=== PATIENT | male | born 1955 | race Caucasian/White ===

== ENCOUNTER 2020-09-29 15:48 | Inpatient (IN) | payer MEDICARE, OTHER, SELFPAY ==
[2020-09-29] VITALS (14 sets, daily range): BP systolic 97–152; BP diastolic 63–101; PULSE 56–89; RESP 13–22; TEMP 36–37; O2SAT 94–100; BMI 27.1
--- NOTE | 2020-09-29 15:47 | ED.SYNCOPE ---
HPI - Syncope General Chief Complaint: Syncope Stated Complaint: SYNCOPE History of Present Illness HPI narrative: 65 yo male w/ no significant medical history presents to the ED following a syncopal episode. He was reportedly sitting down and had just started eating when he became nauseated and light headed. He then lost consciousness. He was lowered to the ground and regained consciousness quickly. He says that he still has some mild nausea at this time, otherwise he is feeling back to baseline. He recalls a few similar episodes about 20 years ago. No cause was found at that time. He does report getting GERD symptoms with activity recently. No SOB, CP, vomiting, diarrhea, fever. Related Data Home Medications Medication Instructions Recorded Confirmed No Home Medications 04/28/19 09/29/20 Allergies Allergy/AdvReac Type Severity Reaction Status Date / Time No Known Allergies Allergy Unknown Verified 09/29/20 15:56 Review of Systems Review of Systems: All systems reviewed & are unremarkable except as noted in HPI and below Constitutional: Constitutional: Denies chills, Denies fever(s) and Denies weakness Eyes: Eyes: Reports no additional eye complaints ENT: Reports system reviewed and no additional complaints, except as documented and Denies vertigo Cardiovascular: Cardiovascular: Denies chest pain Respiratory: Respiratory: Denies dyspnea Gastrointestinal: Gastrointestinal: Denies abdominal pain, Denies diarrhea, Reports nausea and Denies vomiting Genitourinary: Genitourinary: Reports no additional male genitourinary complaints Musculoskeletal: Musculoskeletal: Denies back pain Neurologic: Denies confusion, Reports dizziness, Reports syncope, Denies headache(s) and Denies weakness [facility] Past Medical History Medical History (Updated 09/30/20 @ 15:01 by Larissa Atwood MD) Gilbert disease Right inguinal hernia Tinnitus, bilateral Surgical History Surgical History Hx of cholecystectomy Family History Family History (Updated 09/30/20 @ 09:31 by Larissa Atwood MD) Mother Diabetes mellitus Father Over 80 years old in his 90's Social History Social History Social History: The patient is single and lives alone. He has never been and not have any children. He is a lifelong nonsmoker and rarely drinks alcohol. He denies any illicit substance use. He does not exercise much but is independent in his activities of daily living. 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 Smoking status: Never smoker Alcohol intake: never Substance use: never Spiritual care concerns: No Exam Const: General: healthy appearing, no acute distress and alert Orientation/consciousness: patient oriented x3 HENMT: Head: normal to inspection Mouth: Yes moist mucous membranes Eyes: Conjunctivae: conjunctivae normal Pupils: Equal, round and reactive pupils present EOM: EOMs intact bilaterally Neck: Neck: normal visual inspection Resp: Effort & Inspection: normal respiratory effort Auscultation: clear to auscultation bilaterally, no rales, no rhonchi and no wheezes Cardio: Jugular venous distension: no JVD Rate: regular rate Rhythm: regular rhythm Heart sounds: no murmurs GI: Inspection: non-distended GI Palp: Yes Soft to palpation and No Tenderness to palpation present (GI) Skin: General skin exam: normal color Neuro: General: patient oriented x3, moves all extremities, no focal motor deficits and CN's II-XI intact bilaterally Speech: normal speech Extrem: General: normal to inspection and no edema Psych: Appearance: well kempt Affect: normal affect Course Vital Signs Vital signs: Vital Signs Temperature 37.0 C 09/29/20 15:46 Pulse Rate 60 09/29/20 15:46 Respiratory Rate 20 09/29/20 15:46 Blood Pressure 11
--- NOTE | 2020-09-29 16:05 | ECG_ITS ---
Measurements Intervals [place] Rate: 68 P: 11 RI: 199 QRS: -5 QRSD: 86 T: -17 QT: 390 QTc: 416 Interpretive Statements SINUS RHYTHM VOLTAGE CRITERIA FOR LVH MINIMAL Q WAVES- HIGH LATERAL LEADS BORDERLINE T WAVE ABNORMALITY- INFERIOR LEADS BASELINE ARTIFACT- AVR, AVL, AVF BORDERLINE ECG Electronically Signed On 09-29-2020 17:49:16 CDT by Farhad Kolb D.O.
[2020-09-29 16:22] LABS: Basophils Percent Auto 0.7 % (0.2-1.2); Eosinophils Absolute Auto 0.1 K/mm3 (0-0.3); Hematocrit 46.2 % (42.0-52.0); Hemoglobin 15.6 g/dL (14.0-18.0); Immature Granulocyte Absolute 0.01 K/mm3 (0.00-0.031); Immature Granulocyte Percent A 0.2 % (0-0.5); Lymphocytes Absolute Auto 0.99 K/mm3 (0.9-3.2); Lymphocytes Percent Auto 16.1 % (18.3-44.2); Mean Corpuscular HGB Conc 33.8 g/dl (32-36); Mean Corpuscular Hemoglobin 31.6 pg (26-34); Mean Corpuscular Volume 93.5 fl (80-100); Monocytes Absolute Auto 0.6 K/mm3 (0.1-0.6); Monocytes Percent Auto 9.6 % (2.6-8.5); Neutrophils Absolute Auto 4.4 K/mm3 (1.3-6.7); Neutrophils Percent Auto 71.4 % (45.5-73.1); Platelet Count Result 242 k/mm3 (150-375); Red Blood Count 4.94 M/mm3 (4.6-6.20); Red Cell Distribution Width 12.7 % (11.5-14.5); White Blood Count 6.1 K/mm3 (4.5-10.0)
[2020-09-29] MEDS: SODIUM CHLORIDE 0.9% IV 1,000 ML 999 ML IV CONT (16:26)
[2020-09-29 16:32] LABS: Anion Gap 5 mmol/L (8-16); Blood Urea Nitrogen 23 mg/dL (9-20); Calcium 9.5 mg/dL (8.4-10.2); Carbon Dioxide 28 mmol/L (22-30); Chloride 104 mmol/L (98-107); Estimated CRCL calculation 53 ml/min; Estimated Glomerular Filt Rate > 60; Glucose 131 mg/dL (75-110); Sodium 137 mmol/L (137-145)
--- NOTE | 2020-09-29 16:39 | PC.NURSE ---
This nurse noted that patient's heart rate dropped down to 21 on the monitoring system. his friend came out of the room at that time and reported he was feeling dizzy. I walked into room to find patient sitting up with eyes shut, but responsive and sweating. I put patient in Trendelenburg position. Cat RN and Summer RN notified, Dr Fletcher notified. Strip printed.
[2020-09-29 17:06] LABS: Troponin I < 0.012 ng/mL (0.000-0.034)
--- NOTE | 2020-09-29 19:19 | ADMGEN ---
This patient, Main Paredes, was admitted to IMU Room 203-01 @ 1850. Patient oriented to hospital policies and general routines including ID bracelet, bed and alarms, visiting hours, pain management, procedures, bathroom and other care routines, personal items, smoking policy, room service/diet, and visiting hours. Information on how to activate the Rapid Response Team has been discussed. Patient are encouraged to report perceived risks to care and to ask questions if they do not understand what they are told or what they should do.
[2020-09-29 21:11] LABS: Troponin I < 0.012 ng/mL (0.000-0.034)
[2020-09-30] VITALS (19 sets, daily range): BP systolic 101–138; BP diastolic 64–88; PULSE 54–74; RESP 13–22; TEMP 36.1–36.8; O2SAT 94–99
--- NOTE | 2020-09-30 | ECHO_ITS ---
Patient Info Name: Main Paredes Age: 65 years : 1955 Gender: Male Ht: 66 in Wt: 168 lbs BSA: 1.90 m2 HR: 60 bpm BP: 126 / 73 mmHg Heart Rhythm: Sinus Rhythm Technical Quality: Good Exam Date: 09/30/2020 9:33 AM Exam Location: [facility] Pulmonary Patient Status: Inpatient Admit Date: 09/29/2020 Staff Ordering Physician: Monika Francis DO Sales Incentive Analyst: Aaron Skaggs RDCS, RT Attending Provider: Larissa Atwood MD Referring Physician: Penny UNDERWOOD; Exam Type: CA echo doppler color flow Study Info Indications R01.1 - Cardiac murmur, unspecified Complete two-dimensional, color flow and Doppler transthoracic echocardiogram is performed. Strain analysis performed. Summary 1. Complete two-dimensional, color flow and Doppler transthoracic echocardiogram is performed. 2. Normal left ventricular size with mild concentric hypertrophy. Overall good systolic function with an a estimated ejection fraction of 60-65%. However there appears to be basal inferior hypokinesis. Global longitudinal strain is normal at-19%. Grade 1 diastolic dysfunction is noted. 3. Left atrial chamber dimension is mildly enlarged. 4. Probably bicuspid aortic valve with severe calcification. There is severe/critical aortic valve stenosis with a peak velocity of 479 cm/s, mean gradient of 45 mmHg, and aortic valve area of 0.6 cm2. 5. There is mild mitral valve regurgitation. 6. There is mild tricuspid valve regurgitation. 7. Mild pulmonary hypertension, estimated pulmonary arterial systolic pressure is 37 mmHg. 8. The aortic root is mildly dilated at 3.6 cm. 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 The aortic arch also appears dilated. 9. The temporary pacemaker wires noted; appears to be directed toward the right ventricular free wall. 10. Normal sinus rhythm. Left Ventricle Left ventricular chamber dimension is normal. Left ventricular systolic function is normal, estimated at 60-65%. There is mildly increased left ventricular wall thickness. Left ventricular septal wall motion is normal. The left ventricular diastolic function is grade I diastolic dysfunction. E/e' 10.6 is normal. Right Ventricle Right ventricular chamber dimension is normal. Right ventricular systolic function is normal. Left Atria Left atrial chamber dimension is mildly enlarged. Right Atria Right atrial chamber dimension is normal. Aortic Valve The aortic valve is probably bicuspid. There is no aortic valve sclerosis. Probably bicuspid aortic valve with severe calcification. There is severe/critical aortic valve stenosis with a peak velocity of 479 cm/s, mean gradient of 45 mmHg, and aortic valve area of 0.6 cm2. There is no aortic valve regurgitation. There is severe aortic valve calcification. Pulmonic Valve The pulmonic valve is normal. There is no pulmonic valve stenosis. There is no pulmonic regurgitation. Mitral Valve The mitral valve has normal leaflets. There is no mitral valve stenosis. There is mild mitral valve regurgitation. Tricuspid Valve The tricuspid valve leaflets are normal. There is no significant tricuspid valve stenosis. There is mild tricuspid valve regurgitation. Mild pulmonary hypertension, estimated pulmonary arterial systolic pressure is 37 mmHg. Pericardium/Pleural The pericardium appears normal. There is no pericardial effusion. Inferior Vena Cava Normal inferior vena cava with >50% collapse upon inspiration consistent with Em
[2020-09-30 00:10] LABS: Troponin I < 0.012 ng/mL (0.000-0.034)
[2020-09-30 04:37] LABS: Glucose Point of Care 102 (65-105)
--- NOTE | 2020-09-30 05:03 | PC.NURSE ---
At approx. 0430, patient became bradycardic and then asystolic. Upon entering the room, patient was unresponsive but became responsive and had a rhythm with shaking. Patient was initially disoriented but then became oriented x 3. External pacing pads are on the patient and hooked up to the pacer. Dr. Atwood notified. Patient will transfer to the ICU for further observation.
--- NOTE | 2020-09-30 05:11 | PM.IMCN ---
Assessment and Plan Assessment and plan (1) Asystole by electrocardiogram: Code(s): I46.9 - Cardiac arrest, cause unspecified Status: Acute (2) Syncope: Qualifiers: Syncope type: unspecified Qualified Code(s): R55 - Syncope and collapse Code(s): R55 - Syncope and collapse Status: Acute Additional Plan Patient has had multiple episodes of asystole associated with heart block. Cardiology plans to proceed with temporary pacemaker placement this a.m.. Patient does have heart murmur. Echocardiogram has been ordered. 1 hours spent in critical care activities. Due to a high probability of clinically significant, life threatening deterioration, the patient required my highest level of preparedness to intervene emergently and I personally spent this critical care time directly and personally managing the patient. This critical care time included obtaining a history; examining the patient; pulse oximetry; ordering and review of studies; arranging urgent treatment with development of a management plan; evaluation of patient's response to treatment; frequent reassessment; and discussions with other providers. It was exclusive of separately billable procedures and treating other patients and teaching time. Please see Assessment and Plan section and the rest of the note for further information on patient assessment and treatment. HPI Data of Consult Consult date: 09/30/20 Requesting Physician: Larissa Atwood MD Primary Care Provider: Russ Bravo MD Consult Narrative Narrative: Main Paredes is a 65 year old male with a past medical history of Gilbert's disease and intermittent syncope after syncopal episode and was admitted overnight for observation in the intermediate unit to the cardiology service. Telemetry demonstrated the patient had a type 2 heart block. In the middle of the night the patient Floyd down and had an episode of asystole lasting approximately 30 seconds per nursing report. The patient had spontaneous resumption of sinus rhythm. Pacer pads were applied. The admissions director contacted and patient was transferred to the ICU. P.r.n. atropine was ordered. The hospitalists have been consulted as we were in house. I arrived to the ICU at 5:25 a.m.. I went immediately to the night monitor and note patient is in asystole. At that same time nursing staff noted that the patient was unresponsive. Has staff was getting ready to start CPR the patient became responsive and had sinus bradycardia with heart rate between 45 and 55. The patient had severe nausea for approximately 3-5 minutes after the episode of asystole. He was also mildly confused after both events. At the time of my evaluation he was alert oriented to person place month and current events. He was confused as to the year thought it was 2000. The duration the 2nd episode of asystole was 27 seconds. The patient did have pacer pads applied but they had not yet been turned on. Pacemaker was initiated. Patient initially required 100 volts for capture but voltage was turned down to 50 volts. The patient was having frequent shocks. Subsequently his rate was turned down to 50. He has tolerated pacemaker better since that time. An order has been given for p.r.n. fentanyl for pain. Cardiology was called and updated as to the patient's 2nd episode of asystole. Plan is now for the patient to go for temporary pacemaker this a.m.. On exam patient was noted have a systolic murmur. He denies history of heart disease or known murmur. He denies orthopnea, paroxysmal nocturnal dyspnea or lower extremity edema. Denies history of palpitations. He did have history of recurrent syncopal events that occurred approximately 3 years ago but no cause was identified for those events at that time. The patient reports that he was at dinner at his brother's house when he had his 1st syncopal event last night. He had a brief episode of dizziness before he w
--- NOTE | 2020-09-30 05:30 | PC.NURSE ---
Sancho Paredes (brother) notified of event and transfer to the ICU. All questions answered.
--- NOTE | 2020-09-30 05:35 | ECG_ITS ---
Measurements Intervals [place] Rate: 61 P: 6 NE: 219 QRS: -3 QRSD: 94 T: -13 QT: 433 QTc: 436 Interpretive Statements SINUS RHYTHM WITH FIRST DEGREE AV BLOCK LEFT VENTRICULAR HYPERTROPHY AND ST-T CHANGE BORDERLINE T WAVE ABNORMALITY- INFERIOR LEADS BASELINE ARTIFACT- I, III ABNORMAL ECG Electronically Signed On 09-30-2020 8:59:07 CDT by Farhad Kolb D.O.
--- NOTE | 2020-09-30 06:09 | ECG_ITS ---
Measurements Intervals [place] Rate: 56 P: 7 MN: 223 QRS: -11 QRSD: 94 T: -12 QT: 427 QTc: 413 Interpretive Statements SINUS BRADYCARDIA WITH FIRST DEGREE AV BLOCK LEFT VENTRICULAR HYPERTROPHY AND ST-T CHANGE ABNORMAL ECG Electronically Signed On 09-30-2020 9:04:48 CDT by Farhad Kolb D.O.
[2020-09-30] MEDS: fentaNYL CITRATE INJ (*CRX) 100 MCG/2 ML VIAL 25 MCG IV PUSH (06:18)
--- NOTE | 2020-09-30 06:30 | PC.NURSE ---
This patient, Main Paredes, was received from IMU 203 on 09/30/20 at 0517. Patient oriented to unit policies and routines
[2020-09-30 06:32] LABS: Basophils Percent Auto 0.2 % (0.2-1.2); Eosinophils Absolute Auto 0.2 K/mm3 (0-0.3); Eosinophils Percent Auto 2.9 % (0-4.4); Hematocrit 42.7 % (42.0-52.0); Hemoglobin 14.4 g/dL (14.0-18.0); Immature Granulocyte Absolute 0.02 K/mm3 (0.00-0.031); Immature Granulocyte Percent A 0.2 % (0-0.5); Lymphocytes Absolute Auto 1.14 K/mm3 (0.9-3.2); Lymphocytes Percent Auto 13.9 % (18.3-44.2); Mean Corpuscular HGB Conc 33.7 g/dl (32-36); Mean Corpuscular Hemoglobin 31.2 pg (26-34); Mean Corpuscular Volume 92.6 fl (80-100); Mean Platelet Volume 8.9 fl (7.4-10.4); Monocytes Absolute Auto 0.7 K/mm3 (0.1-0.6); Monocytes Percent Auto 8.9 % (2.6-8.5); Neutrophils Percent Auto 73.9 % (45.5-73.1); Platelet Count Result 222 k/mm3 (150-375); Red Blood Count 4.61 M/mm3 (4.6-6.20); Red Cell Distribution Width 12.7 % (11.5-14.5); White Blood Count 8.2 K/mm3 (4.5-10.0)
[2020-09-30 06:40] LABS: Prothrombin Time 13.6 Seconds (11.1-14.7)
[2020-09-30 06:43] LABS: Anion Gap 5 mmol/L (8-16); Blood Urea Nitrogen 17 mg/dL (9-20); Calcium 8.7 mg/dL (8.4-10.2); Carbon Dioxide 27 mmol/L (22-30); Chloride 108 mmol/L (98-107); Estimated CRCL calculation 53 ml/min; Estimated Glomerular Filt Rate > 60; Glucose 129 mg/dL (75-110); Potassium 4.1 mmol/L (3.4-5.0); Sodium 140 mmol/L (137-145)
--- NOTE | 2020-09-30 08:00 | PM.IMHP ---
H&P: HPI History of Present Illness Date/Time: 09/30/20 08:00 Chief Complaint: Syncope Narrative: Date of Service 09/30/2020 Mr. Main Paredes is a 65 y.o. WM admitted for syncope. He has been found have episodes of complete heart block and sinus node dyfunction resulting in ventricular asystole lasting for up to 30 seconds since admission. The patient recalls about a 2 years ago he had episodes of syncope but no etiology could be found and they resolved. Starting yesterday he has episodes of brief dizziness and nausea none while eating dinner with his brother he became nauseated, lightheaded and had an episode of syncope. He was brought to the emergency room where he transiently dropped his heart rate to 27 with both sinus pauses and a nonconducted P wave suggesting both sinus node dysfunction AV node dysfunction. He was admitted to IMU but shortly before 5 a.m. this morning he had episode of asystole lasting, per the nurses, about 30 seconds that resolved with stimulating the patient. He was nauseated and groggy for a while afterwards. He was transferred to the ICU and external pacer applied. He had another brief episode of complete heart block which progressed to a sinus pause lasting about 20 seconds, occuring before the external pacer was turned on. Now he is requiring intermittent episodes of external pacing. The patient has been previously quite healthy. He does report however that on exertion he will feel some substernal heartburn which radiates up to his neck resolved with rest. When he resumes activity takes longer for to come back. He has a history of borderline hypertension. He has never been told he had a heart murmur. No diabetes or hyperlipidemia. No family h/o heart disease, except mother might have had a pacemaker. Review of Systems Constitutional: Constitutional: Denies fatigue, Denies lethargy and Denies weakness Eyes: Eyes: Reports no additional eye complaints ENT: Denies epistaxis Cardiovascular: Cardiovascular: Reports chest pain, Denies diaphoresis, Denies pedal edema, Denies leg edema, Reports lightheadedness and Denies palpitations Respiratory: Respiratory: Denies cough, Denies dyspnea and Denies dyspnea on exertion Gastrointestinal: Gastrointestinal: Denies abdominal pain and Reports heartburn (with activity) Genitourinary: Genitourinary: Reports no additional male genitourinary complaints Musculoskeletal: Musculoskeletal: Reports no additional musculoskeletal complaints Integumentary/Breasts: Skin/Breast: Denies rash Neurologic: Reports system reviewed and no additional complaints, except as documented Psychiatric: Psychiatric: Reports no additional psychiatric complaints [facility] Past Medical History Medical History (Updated 09/30/20 @ 10:01 by Jair Velazquez MD) Gilbert disease Right inguinal hernia Tinnitus, bilateral Surgical History Surgical History Hx of cholecystectomy Family History Family History (Updated 09/30/20 @ 09:31 by Larissa Atwood MD) Mother Diabetes mellitus Father Over 80 years old in his 90's Social History Social History Social History: The patient is single and lives alone. He has never been and not have any children. He is a lifelong nonsmoker and rarely drinks alcohol. He denies any illicit substance use. He does not exercise much but is independent in his activities of daily living. 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 Smoking status: Never smoker Alcohol intake: never Substance use: never Spiritual care concerns: No Meds Home Medications and Allergies Home Medications Medication Instructions Recorded Confirmed Type No Home Medications 04/28/19 09/29/20 History Allergies Allergy/AdvReac Type Severity Reaction Status Date / Time No Known Allergies
--- NOTE | 2020-09-30 08:12 | WPDHPUPDATE1 ---
History and Physical Update Update Date/Time: 09/30/20 08:12 History and Physical has been reviewed, including an updated exam of the patient. There are NO changes in the patient's condition. Risks, benefits, and alternatives have been discussed and questions answered. Patient agrees to proceed with procedure.
--- NOTE | 2020-09-30 08:12 | WPDMODSED ---
Moderate Sedation Note-Pt Data Patient Data Diagnosis: Episodes of complete heart block and asystole, sinus node dysfunction Present Complaint: Recurrent syncope Procedure to be performed/Plan: Conscious sedation Temporary transvenous pacemaker Allergies Allergy/AdvReac Type Severity Reaction Status Date / Time No Known Allergies Allergy Unknown Verified 09/29/20 15:56 Home Medications Medication Instructions Recorded Confirmed Type No Home Medications 04/28/19 09/29/20 History Current Medications: Active Medications Atropine Sulfate (Atropine Sulfate 1 Mg/10 Ml Syringe) 0.5 mg IV PUSH ONCE PRN PRN Reason: Bradycardia Stop: 10/02/20 04:56 Fentanyl Citrate (Fentanyl Citrate Inj (*Crx) 100 Mcg/2 Ml Vial) 50 mcg IV PUSH Q1HR PRN PRN Reason: Pain Sedation/Anesthesia: No previous sedation/anesthesia problems (including family history). [facility] Past Medical History Medical History Gilbert disease Tinnitus, bilateral Surgical History Surgical History Hx of cholecystectomy Family History Family History Mother Diabetes mellitus Father Over 80 years old Social History Social History Social History: The patient is single and lives alone. He has never been and not have any children. He is a lifelong nonsmoker and rarely drinks alcohol. He denies any illicit substance use. He does not exercise much but is independent in his activities of daily living. 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 Smoking status: Never smoker Alcohol intake: never Substance use: never Spiritual care concerns: No Mod Sed Physical Exam Physical Exam Pre Procedural Exam: Normal: Appearance, Eyes, Ears, Nose, Neck, Throat, Airway, Lungs, Heart Size, Heart Rate, Heart Rhythm, Neuro Exam, Abdomen, Breasts, Extremities and Skin Hours since solid foods: 12 Hours since liquid intake: 12 Internal Medicine - PN: Obj Da Vital Signs Vital Signs: Vital Signs - 24 hr 09/29/20 15:46 09/29/20 16:07 09/29/20 16:09 Temperature 98.6 F Pulse Rate 60 60 63 Respiratory Rate 20 Blood Pressure 114/73 106/66 Pulse Oximetry 100 09/29/20 16:12 09/29/20 16:14 09/29/20 16:32 Temperature Pulse Rate 66 67 64 Respiratory Rate 20 17 Blood Pressure 114/78 114/82 127/101 H Pulse Oximetry 100 99 09/29/20 17:02 09/29/20 18:02 09/29/20 18:55 Temperature Pulse Rate 63 64 89 Respiratory Rate 13 22 H Blood Pressure 138/84 152/71 H Pulse Oximetry 100 98 09/29/20 18:56 09/29/20 19:56 09/29/20 20:00 Temperature 98.1 F 96.8 F L Pulse Rate 65 70 70 Respiratory Rate 14 16 Blood Pressure 130/73 129/77 Pulse Oximetry 99 98 98 09/29/20 22:00 09/29/20 23:51 09/30/20 00:00 Temperature 97.2 F L Pulse Rate 56 L 65 55 L Respiratory Rate 18 Blood Pressure 97/63 L Pulse Oximetry 94 94 09/30/20 02:00 09/30/20 03:25 09/30/20 04:00 Temperature 98.2 F Pulse Rate 72 58 L 54 L Respiratory Rate 16 Blood Pressure 107/66 Pulse Oximetry 98 98 09/30/20 04:40 09/30/20 05:16 09/30/20 06:00 Temperature 97.4 F L Pulse Rate 54 L 66 65 Respiratory Rate 14 22 H 21 H Blood Pressure 138/73 138/88 117/75 Pulse Oximetry 99 98 98 09/30/20 07:37 Temperature 97 F L Pulse Rate 60 Respiratory Rate 18 Blood Pressure 126/73 Pulse Oximetry 98 Intake/Output Intake/Output: Intake & Output 09/27/20 09/28/20 09/29/20 09/30/20 23:59 23:59 23:59 23:59 Intake Total 1000 Output Total 350 Balance 1000 -350 Meds/Results Medications: Active Medications Generic Name Dose Route Start Last Admin Trade Name Freq PRN Reason Stop Dose Admin Atropine Sulfate 0.5 mg 09/30/20 04:55 Atropine Sulfate 1 Mg/10 Ml Syringe IV
--- NOTE | 2020-09-30 09:00 | PM.OP ---
Procedure Note - Brief Procedure Note - Brief Date of procedure: 09/30/20 Pre-op diagnosis: intermittent heart block Intermittent complete heart block sinus node dysfunction resulting in asystole Post-op diagnosis: same Procedure performed: Conscious sedation Temporary transvenous pacemaker Description of procedure: Uneventful implant of a temporary transvenous pacemaker into the right ventricle Anesthesia: local Surgeon: Larissa Atwood MD Complications: No immediate complications Condition: stable Disposition: ICU Findings: patient remained in normal sinus rhythm during the procedure.
--- NOTE | 2020-09-30 09:06 | P.OP_ITS ---
Procedure Note - Detailed Date of procedure: 09/30/20 Pre-op diagnosis: intermittent heart block intermittent complete heart block and sinus node dysfunction resulting in asystole Post-op diagnosis: same Procedure performed: conscious sedation Temporary transvenous pacemaker Description of procedure: Conscious sedation: Assessment: The patient has no history of anesthesia problems. The patient's oropharynx is clear. The patient was deemed to be a good candidate for conscious sedation. The patient had continuous hemodynamic monitoring during the procedure. Start time: 837 Completion time: 856 Total conscious sedation time: 19 minutes Medications: Versed 2 mg IV push Trained observer: Clara Powell RN Outcome: The patient tolerated the procedure well with no complications. After informed consent the patient was brought to the salvage laborer. The Right femoral area was prepped and draped in usual fashion. After conscious sedation the patient received lidocaine local anesthesia. The right femoral arteries punctured and cannulated with a 6 Indonesian short venous sheath. a balloon tipped temporary transvenous pacemaker was advanced into the right heart and into the right ventricular apex. It took a few minutes to find a good position for the temporary lead in which there was a good pacing threshold but no significant ventricular irritability. The threshold was less than 1 mV. The pacemaker was set at 40 PPM and sensing appeared good. The sterile sleeve was advanced over the wire. The sheath was sutured to the skin with 4 0 silk suture. A sterile dressing applied. Anesthesia: local ( with conscious sedation) Surgeon: Larissa Atwood MD Estimated blood loss (mL): 3 Drains: No Packing: No Pathology: none sent Complications: No immediate complications Condition: stable Disposition: ICU Findings: Patient remained in sinus rhythm during the procedure. Temporary pacer set at 40 beats per minute, threshold less than 1 mV
--- NOTE | 2020-09-30 09:43 | WPDCNINT ---
Assessment and Plan Assessment and plan (1) Syncope: Qualifiers: Syncope type: unspecified Qualified Code(s): R55 - Syncope and collapse Code(s): R55 - Syncope and collapse Status: Acute (2) Cardiac arrest: Code(s): I46.9 - Cardiac arrest, cause unspecified Status: Acute Assessment and Plan: complete heart block and Asystole due to sinus node dysfunction and AV node dysfunction. -temporary transvenous pacemaker has been inserted -patient currently hemodynamically stable with intrinsic rhythm in the 50s -echocardiogram has been done this morning, results pending -cardiology following the patient (3) Exertional chest pain: Code(s): R07.9 - Chest pain, unspecified Status: Acute Assessment and Plan: Examination chest pain likely related to exertion angina possibly due to aortic stenosis coronary artery disease -awaiting echocardiogram results to see if there is any wall motion abnormality (4) Heart murmur: Code(s): R01.1 - Cardiac murmur, unspecified Status: Acute Assessment and Plan: Systolic murmur likely aortic stenosis -await echo results Additional Plan Discussed with patient and his brother at bedside updated them with patient's condition plan of care. Patient is aware that he may be getting pacemaker sometime tomorrow Code status: Full code Critical care time spent: 45 minutes This dictation may have been done utilizing a voice recognition system. Attempts have been made to correct errors. However, there may be uncorrected grammatical, spelling, and recognition errors present. Due to a high probability of clinically significant, life threatening deterioration, the patient required my highest level of preparedness to intervene emergently and I personally spent this critical care time directly and personally managing the patient. This critical care time included obtaining a history; examining the patient; pulse oximetry; ordering and review of studies; arranging urgent treatment with development of a management plan; evaluation of patient's response to treatment; frequent reassessment; and discussions with other providers. It was exclusive of separately billable procedures and treating other patients and teaching time. Please see Assessment and Plan section and the rest of the note for further information on patient assessment and treatment Loading Unit Operator Seating Consult Note Consult date: 09/30/20 Time Seen: 07:05 Reason for consult: Syncopal episode, symptomatic AV block HPI: Main Paredes is a 65 year old male with past medical history of Gilbert's disease, right inguinal hernia presented the ED 09/29/2020 with complains of syncope along with nausea and lightheadedness and was placed in the intermediate Unit, patient did have episodes of bradycardia. He was admitted to the intermediate Unit where he had a episode of asystole for approximately 27 seconds according the bedside RNs. Was transferred to the ICU and external pacer pads were applied. Did have a episode of complete heart block and also had some sinus pauses lasting about 20 seconds. Patient was taken to the laborer/key man and a temporary venous pacemaker was inserted. Patient seen and examined the ICU is awake, alert, oriented, nonfocal. Denies any chest pain, shortness of breath abdominal pain, nausea vomiting at this time. Post temporary pacemaker insertion blood pressures have been stable, O2 sats have been adequate on room air, pacer set at 40 beats per minute. Patient currently with intrinsic rhythm Review of Systems Review of Systems: All systems reviewed & are unremarkable except as noted in HPI and below PMFSH Past Medical History Medical History (Updated 09/30/20 @ 10:01 by Jair Velazquez MD) Gilbert disease Right inguinal hernia Tinnitus, bilateral Surgical History Surgical History Hx of cholecystectomy Family Hist
--- NOTE | 2020-09-30 14:59 | PM.TDS ---
Transfer Discharge Sum: Prov Provider Date of admission: 09/29/20 17:42 Primary care physician: Russ Bravo MD Admitting clinician: Larissa Atwood MD Attending physician on admission: Larissa Atwood Consults: 09/30/20 Consult to Physician Routine Comment: Consulting Provider: Monika Francis call center operator/MD group to consult: Hospitalist group Reason for consultation: Asystole Has provider been notified: Yes Consult to Physician Routine Comment: asystole Consulting Provider: Jair Velazquez call center operator/MD group to consult: Marcus Reason for consultation: farhat/asystole Has provider been notified: Yes Attending physician on discharge: Larissa Atwood Discharging clinician: Larissa Atwood Anticipated date of transfer: 09/30/20 Receiving physician/facility: [facility] DS: Admitting Diagnosis Admitting Diagnosis Admitting Diagnosis: Syncope secondary to complete heart block and asystole DS: Discharge Diagnosis Discharge Diagnosis (1) Syncope: Code(s): R55 - Syncope and collapse Status: Acute (2) Complete heart block: Code(s): I44.2 - Atrioventricular block, complete Status: Acute (3) Asystole: Code(s): I46.9 - Cardiac arrest, cause unspecified Status: Acute (4) Critical aortic valve stenosis: Code(s): I35.0 - Nonrheumatic aortic (valve) stenosis Status: Acute (5) Ascending aortic aneurysm: Code(s): I71.2 - Thoracic aortic aneurysm, without rupture Status: Acute (6) Temporary transvenous cardiac pacemaker present: Code(s): Z95.0 - Presence of cardiac pacemaker Status: Acute Assessment and Plan: Temporary transvenous pacemaker placed this morning, good function, threshold less than 1 mV. Echo suggests it may be directed toward the right ventricular free wall so it may need to be repositioned although it was difficult to position initially. I left the pacemaker balloon inflated. Transfer Discharge Sum: Med Medications Active and Home Medications: Home Medications No Home Medications 04/28/19 [History Confirmed 09/29/20] Active Medications Acetaminophen (Acetaminophen 325 Mg Tablet) 650 mg PO Q4H PRN PRN Reason: Mild Pain (1-3) or Fever Atropine Sulfate (Atropine Sulfate 1 Mg/10 Ml Syringe) 0.5 mg IV PUSH ONCE PRN PRN Reason: Bradycardia Stop: 10/02/20 04:56 Fentanyl Citrate (Fentanyl Citrate Inj (*Crx) 100 Mcg/2 Ml Vial) 50 mcg IV PUSH Q1HR PRN PRN Reason: SEVERE PAIN Oxycodone/Acetaminophen (Oxycodone/Acetaminophen (*Crx) 5-325 Mg Tablet) 1 tablet PO Q4H PRN PRN Reason: Pain Rated 4-6 Transfer Discharge Sum: Hosp Hospital Course Hospital course: Main Paredes is a 65 year old male who was previously healthy with only pre hypertension who was admitted after syncopal episode. In the ER he was transiently bradycardic due to sinus node dysfunction and a brief episode of complete heart block. When he was admitted to telemetry early this morning he had a 30 second episode of asystole which started with complete heart block resulting in unconsciousness. He regained heart rate and consciousness after stimulation. He was nauseated and groggy for a while afterwards. He was transferred to the ICU and external pacer applied. He had another brief episode of complete heart block which progressed to a sinus pause lasting about 20 seconds, occuring before the external pacer was turned on. He had placement of a temporary transvenous pacemaker which has good thresholds and is set for a backup rate of 40 ppm. He has stabilized with infrequent ventricular pacing. The patient provides a history of exertional angina and was found to have a murmur on a
--- NOTE | 2020-09-30 15:16 | PM.IMPN ---
Progress Note: A&P Assessment and Plan (1) Asystole by electrocardiogram: Code(s): I46.9 - Cardiac arrest, cause unspecified Status: Acute Assessment and Plan: 09/30/20 15:16 Patient is 65 y/o male with hx of borderline HTN and on and off heart [place] with exertion, Patient presented with syncopal episode and was admitted in IMU patient while on telemetry patient had farhat cardia and then went into asystole lasting 30 seconds and had return of spontaneous sinus rhythm, his supervisor rose grading was contacted and patient was transferred to ICU, while in the ICU patient had another episode of a systole and was unresponsive however patient went back bradycardia, this time lasting 27 second, patient was seen by Dr. Francis pacer pads applied and rhythm captured at 50 volts, supervisor rose grading was informed to second systole, today patient was seen by his supervisor rose grading a temporary pacemaker inserted, patient stats he is feeling much better and he is scheduled to permanent pacemaker tomorrow, patient is in ICU, he is clinically stable will continue to monitor. (2) Syncope: Code(s): R55 - Syncope and collapse Status: Acute Assessment and Plan: Most likely secondary to asystole and bradycardia patient is now clinically stable Subjective Date/time seen: 09/30/20 15:16 Patient is 65 y/o male with hx of borderline HTN and on and off heart [place] with exertion, Patient presented with syncopal episode and was admitted in IMU patient while on telemetry patient had farhat cardia and then went into asystole lasting 30 seconds and had return of spontaneous sinus rhythm, his supervisor rose grading was contacted and patient was transferred to ICU, while in the ICU patient had another episode of a systole and was unresponsive however patient went back bradycardia, this time lasting 27 second, patient was seen by Dr. Francis pacer pads applied and rhythm captured at 50 volts, supervisor rose grading was informed to second systole, today patient was seen by his supervisor rose grading a temporary pacemaker inserted, patient stats he is feeling much better and he is scheduled to permanent pacemaker tomorrow, patient is in ICU, he is clinically stable will continue to monitor. Review of Systems Review of Systems: All systems reviewed & are unremarkable except as noted in HPI and below Exam Narrative: Exam Narrative: Patient is comfortable, NAD HEENT: eyes are clear and none icteric LUNGS:CTA HEART: RR S1S2 ABD: BS+, Soft and nontender Lower extremities: no edema SKIN: nonjaundiced Neuro: grossly intact. Objective Data Vital Signs Vital Signs: Vital Signs - 24 hr 09/29/20 15:46 09/29/20 16:07 09/29/20 16:09 Temperature 98.6 F Pulse Rate 60 60 63 Respiratory Rate 20 Blood Pressure 114/73 106/66 Pulse Oximetry 100 09/29/20 16:12 09/29/20 16:14 09/29/20 16:32 Temperature Pulse Rate 66 67 64 Respiratory Rate 20 17 Blood Pressure 114/78 114/82 127/101 H Pulse Oximetry 100 99 09/29/20 17:02 09/29/20 18:02 09/29/20 18:55 Temperature Pulse Rate 63 64 89 Respiratory Rate 13 22 H Blood Pressure 138/84 152/71 H Pulse Oximetry 100 98 09/29/20 18:56 09/29/20 19:56 09/29/20 20:00 Temperature 98.1 F 96.8 F L Pulse Rate 65 70 70 Respiratory Rate 14 16 Blood Pressure 130/73 129/77 Pulse Oximetry 99 98 98 09/29/20 22:00 09/29/20 23:51 09/30/20 00:00 Temperature 97.2 F L Pulse Rate 56 L 65 55 L Respiratory Rate 18 Blood Pressure 97/63 L Pulse Oximetry 94 94 09/30/20 02:00 09/30/20 03:25 09/30/20 04:00 Temperature 98.2 F Pulse Rate 72 58 L 54 L Respiratory Rate 16 Blood Pressure 107/66 Pulse Oximetry 98 98 09/30/20 04:40 09/30/20 05:16 09/30/20 06:00 Temperature 97.4 F L Pulse Rate 54 L 66 65 Respiratory Rate 14 22 H 21 H Blood Pressure 138/73 138/88 117/75 Pulse Oximetry 99 98 98 09/30/20 07:37 09/30/20 08:00 09/30/20 10:00 Temperature 97 F L Pulse Rate 60 59 L 56 L Respiratory Rate
[2020-10-01] VITALS: BP 117/76; PULSE 47; PULSE 64; RESP 17; TEMP 36.7; O2SAT 94
--- NOTE | 2020-10-01 00:18 | PC.NURSE ---
[id number] telephoned [facility] at [phone] in an effort to provide report. At this time notified of bed not being available. 10-01-2015 received call from [facility] transfer line inquiring when report would be given and an ETA of patient arrival. Explained upon calling report the bed was not available.
--- NOTE | 2020-10-01 00:51 | PC.NURSE ---
report provided to NATALIE Adorno at [facility].
== END 2020-10-01 02:01 | disposition short-term general hospital (02) | DRG 308 ==
LOC: ANHED 16:25 → ANHIMU 18:04 → ANHICU 09-30 05:13
PROVIDERS: Admitting Provider Internal Medicine Cardiovascular Disease; Emergency Provider Emergency Medicine; PCP Family Medicine; Visit Provider Internal Medicine Cardiovascular Disease
PROC: 5A1223Z Performance of Cardiac Pacing, Continuous (ICD-10-PCS; CPT 33210; principal; 2020-09-30 08:00)
DX: I44.2 Atrioventricular block, complete (principal); I46.9 Cardiac arrest, cause unspecified; I71.2 Thoracic aortic aneurysm, without rupture; R55 Syncope and collapse; I35.0 Nonrheumatic aortic (valve) stenosis; E80.4 Gilbert syndrome; H93.13 Tinnitus, bilateral
CPT/HCPCS: 33210; 36415; 80048; 82948; 84484; 85025; 85610; 93005; 93306; 96360; 99285; C1894; J1644; J2250; J3010; J7030; J7040

== ENCOUNTER 2022-01-31 05:00 | Emergency (ER) | payer MEDICARE, OTHER, SELFPAY ==
--- NOTE | ~2022-01-31 | CT_ITS ---
EXAMINATION: CTA chest DATE: 01/31/2022 06:47 INDICATION: Back pain. Aneurysm. TECHNIQUE: Computed tomographic angiography (CTA) of the chest was performed with 100 mL Omnipaque-35 0 intravenous contrast. Volume-rendered 3D-reconstructions of the aorta and large arteries were const ructed by the technologist on a separate workstation. Automated exposure control and iterative recons truction technique were employed. The dose-length product was mGy-cm. COMPARISON: None. FINDINGS: Lungs are clear with no pneumonia, pulmonary edema or other pulmonary infiltrates. No pleural effusio n or pneumothorax. Although not performed as a dedicated pulmonary embolism protocol there is excelle nt contrast opacification of the pulmonary arteries demonstrating no pulmonary embolism. Heart size i s normal. Atherosclerotic coronary artery calcification. No pericardial effusion. Postoperative cowan e of prior median sternotomy with aortic valve repair as well as of the ascending thoracic aortic ane urysm repair. There is residual aneurysmal dilation of the distal ascending aorta which measures up t o 4.8 x 4.5 cm medially proximal to the takeoff of the innominate artery. Aortic tapers to 2.7 cm in maximal diameter at the apex of the aortic arch immediately after the takeoff of the left subclavian artery maintains a normal caliber throughout the visualized proximal abdominal aorta. No dissection. Dual-lead cardiac pacemaker with lead tips at the right atrial appendage and at the apex of the right ventricle. No pathologically enlarged thoracic lymphadenopathy. Small sliding-type hiatal hernia. Ga llbladder is nonvisualized and likely surgically absent. Mild thoracic spondylosis. IMPRESSION: 1. Prior aortic valve repair and repair of ascending thoracic aortic aneurysm with residual aneurysma l dilation of the more distal ascending thoracic aorta which measures up to 4.8 x 4.5 cm immediately distal to the level of the repair. No evident dissection or other acute cardiopulmonary disease. 2. Small sliding-type hiatal hernia. Reviewed, dictated and finalized at location A. IMPRESSION: 1. Prior aortic valve repair and repair of ascending thoracic aortic aneurysm w ith residual aneurysmal dilation of the more distal ascending thoracic aorta wh ich measures up to 4.8 x 4.5 cm immediately distal to the level of the repair. No evident dissection or other acute cardiopulmonary disease. 2. Small sliding-type hiatal hernia.
--- NOTE | ~2022-01-31 | XR_ITS ---
EXAMINATION: XR chest 1V portable DATE: 01/31/2022 05:41 INDICATION: Mid to upper back pain TECHNIQUE: frontal view of the chest was obtained. COMPARISON: None FINDINGS: The lungs are clear with no focal airspace opacities, pulmonary edema, pleural effusion or pneumothor ax. The cardiomediastinal silhouette is normal. Median sternotomy wires, ostial markers and mediastin al surgical clips consistent with prior coronary artery bypass grafting. There is also been prior aor tic valve repair. Dual lead pacemaker seen with leads projecting over the expected locations of the r ight atrium and right ventricle. IMPRESSION: 1. No acute cardiopulmonary disease. Reviewed, dictated and finalized at location A.
[2022-01-31 05:04] VITALS: BP 132/81; PULSE 89; RESP 20; TEMP 36.9; O2SAT 100
--- NOTE | 2022-01-31 05:05 | ECG_ITS ---
Measurements Intervals [place] Rate: 85 P: 12 ID: [id number] QRS: 27 QRSD: 85 T: 25 QT: 361 QTc: 430 Interpretive Statements SINUS RHYTHM NONSPECIFIC ST & T-WAVE ABNORMALITY COMPARED TO ECG 09/30/2020 05:36:18 NO SIGNIFICANT CHANGE Electronically Signed On 01-31-2022 12:00:44 CDT by Russ Trivedi M.D.
--- NOTE | 2022-01-31 05:24 | ED.GENADULT ---
HPI - General Adult General Chief complaint: Back Pain/Injury Stated complaint: Back Pain Time Seen by Provider: 01/31/22 05:04 Source: RN notes reviewed History of Present Illness HPI narrative: Patient presents emergency department from home for upper back pain. Patient states symptoms began 2 days ago. The pain is located in the upper back between the shoulder blades the pain is described as aching in nature and worse with movements. He denies any known trauma or injury states that the pain in this region feels tight he states that he had gone to see his PCP and was given a muscle relaxer but is laying in bed today and was having hard time get out of bed secondary to the pain he denies any fevers or chills chest pain abdominal pain nausea vomiting numbness or tingling the extremities the patient was given Toradol in route by EMS. Patient states the pain did start 2 days ago when he was riding in his boat Related Data Home Medications Medication Instructions Recorded Confirmed aspirin 81 mg tablet,delayed 81 mg PO DAILY 01/30/22 01/30/22 release (Adult Aspirin Regimen) atorvastatin 20 mg tablet 20 mg PO DAILY 01/30/22 01/30/22 rivaroxaban 20 mg tablet (Xarelto) 20 mg PO DAILY 01/30/22 01/30/22 Allergies Allergy/AdvReac Type Severity Reaction Status Date / Time No Known Allergies Allergy Unknown Verified 01/31/22 05:07 Review of Systems Review of Systems: Gen.: Denies fevers or chills ENT: Denies congestion Respiratory: Denies shortness of breath or cough CV: Denies chest pain or palpitations GI: Denies abdominal pain nausea, emesis Musculoskeletal: See HPI Neuro: Denies numbness, tingling, weakness or focal weakness Skin: Denies rash Except as documented, all other systems reviewed and negative [facility] Past Medical History Medical History Gilbert disease Pacemaker Right inguinal hernia Tinnitus, bilateral Surgical History Surgical History H/O angioplasty Hx of cholecystectomy S/P AVR (aortic valve replacement) and aortoplasty Family History Family History Mother Diabetes mellitus Father Over 80 years old in his 90's Social History Social History Social History: The patient is single and lives alone. He has never been and not have any children. He is a lifelong nonsmoker and rarely drinks alcohol. He denies any illicit substance use. He does not exercise much but is independent in his activities of daily living. 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 Smoking status: Never smoker Alcohol intake: never Substance use: never Spiritual care concerns: No Exam Narrative: APPEARANCE: No acute distress, nontoxic, resting in bed EYES: EOMI HEENT: Normocephalic, atraumatic, OMM RESPIRATORY: No respiratory distress Clear to auscultation bilaterally with no rhonchi wheezing or rales. CARDIOVASCULAR: Regular rate and rhythm without murmurs rubs or gallops. ABDOMINAL: Soft, nontender, nondistended, no rebound or guarding MUSCULOSKELETAl: Moves all extremities. No clubbing, cyanosis or edema. Back: No midline thoracic or lumbar tenderness palpation tender palpation bilateral paravertebral muscles T4-7 worse on right pain increased with forward flexion of the back and abduction of the right shoulder when reaching across the body NEURO: Awake and alert. Following commands, speech normal, no focal deficits SKIN:: Warm, dry. No rashes lesions or abrasions PSYCHIATRIC: Normal affect/mood, Course Course Emergency Course: Patient states pain is improved following Toradol patient is on blood thinners and cannot use regular anti-inflammatory at home I discussed with the patient has tenacity and at home and has been taking Tylenol and
[2022-01-31 05:59] LABS: Basophils Percent Auto 0.3 % (0.2-1.2); Eosinophils Absolute Auto 0.1 K/mm3 (0-0.3); Eosinophils Percent Auto 1.3 % (0-4.4); Hematocrit 42.6 % (42.0-52.0); Hemoglobin 14.6 g/dL (14.0-18.0); Immature Granulocyte Absolute 0.06 K/mm3 (0.00-0.031); Immature Granulocyte Percent A 0.7 % (0-0.5); Lymphocytes Percent Auto 6.5 % (18.3-44.2); Mean Corpuscular HGB Conc 34.3 g/dl (32-36); Mean Corpuscular Hemoglobin 32.1 pg (26-34); Mean Corpuscular Volume 93.6 fl (80-100); Monocytes Absolute Auto 0.9 K/mm3 (0.1-0.6); Monocytes Percent Auto 10.1 % (2.6-8.5); Neutrophils Absolute Auto 7.5 K/mm3 (1.3-6.7); Neutrophils Percent Auto 81.1 % (45.5-73.1); Platelet Count Result 235 k/mm3 (150-375); Red Blood Count 4.55 M/mm3 (4.6-6.20); Red Cell Distribution Width 12.9 % (11.5-14.5); White Blood Count 9.2 K/mm3 (4.5-10.0)
[2022-01-31 06:29] LABS: Alanine Aminotransferase 48 U/L (6-50); Albumin Level 4.2 g/dL (3.5-5.1); Alkaline Phosphatase 114 U/L (38-126); Anion Gap 9 mmol/L (8-16); Aspartate Amino Transferase 40 U/L (17-59); Bilirubin,Total 2.1 mg/dL (0.2-1.3); Blood Urea Nitrogen 22 mg/dL (9-20); Calcium 9.6 mg/dL (8.4-10.2); Carbon Dioxide 26 mmol/L (22-30); Chloride 100 mmol/L (98-107); Estimated CRCL calculation 55 ml/min; Estimated Glomerular Filt Rate > 60; Glucose 133 mg/dL (65-110); Lipase 146 U/L (23-300); Potassium 3.7 mmol/L (3.4-5.0); Sodium 135 mmol/L (137-145)
[2022-01-31 06:40] LABS: Troponin I < 0.012 ng/mL (0.000-0.034)
[2022-01-31 06:43] LABS: INR 1.6; Prothrombin Time 18.3 Seconds (11.1-14.7)
[2022-01-31 06:44] LABS: Partial Thromboplastin Time 46.9 SECONDS (22.3-36.8)
--- NOTE | 2022-01-31 06:59 | PC.NURSE ---
Assumed pt care from NATALIE Rondon
[2022-01-31 07:18] VITALS: PULSE 76; RESP 20; O2SAT 96
== END 2022-01-31 07:26 | disposition home or self-care (01) ==
PROVIDERS: Emergency Provider Emergency Medicine; PCP Family Medicine
DX: M54.6 Pain in thoracic spine (principal); L42 Pityriasis rosea; Z95.0 Presence of cardiac pacemaker; Z95.2 Presence of prosthetic heart valve; Z98.62 Peripheral vascular angioplasty status; Z79.01 Long term (current) use of anticoagulants; Z79.82 Long term (current) use of aspirin; R94.31 Abnormal electrocardiogram [ECG] [EKG]; K44.9 Diaphragmatic hernia without obstruction or gangrene
CPT/HCPCS: 36415; 71045; 71275; 80053; 83690; 84484; 85025; 85610; 85730; 93005; 99284; Q9967

== ENCOUNTER 2022-01-31 18:51 | Emergency (ER) | payer MEDICARE, OTHER, SELFPAY ==
[2022-01-31] VITALS (19 sets, daily range): BP systolic 101–154; BP diastolic 66–88; PULSE 94–120; RESP 15–39; TEMP 36.6; O2SAT 93–100
--- NOTE | ~2022-01-31 | CT_ITS ---
EXAMINATION: CT abdomen pelvis w con DATE: 01/31/2022 20:54 INDICATION: Abdominal pain. TECHNIQUE: Computed tomography (CT) of the abdomen and pelvis was performed with 100 mL Omnipaque 350 intravenous contrast. Automated exposure control and iterative reconstruction technique were employe d. The dose-length product was 678.13 mGy-cm. COMPARISON: None. FINDINGS: The visualized portions of the lung bases demonstrate mild atelectasis. No pleural effusion . The heart size is normal. There are changes of aortic valve replacement. There are pacer wires in r ight atrium and right ventricle. No pericardial effusion. There is a small sliding hiatal hernia. The liver and spleen are normal. The gallbladder is absent. The pancreas, adrenal glands, and left kidne y are normal. There is a 9 mm cyst in right kidney. There is a left inguinal hernia containing fat. T here is a right inguinal hernia containing nonobstructed small bowel. There is diverticulosis of the colon without evidence of diverticulitis. The appendix is normal. There are no pathologically enlarge d lymph nodes. The prostate is moderately enlarged. There is no free intraperitoneal fluid. The bladd er is distended. There is severe lower lumbar spondylosis. IMPRESSION: 1. Right inguinal hernia containing nonobstructed small bowel. 2. Left inguinal hernia containing fat. 3. Small sliding hiatal hernia. Reviewed, dictated and finalized at location A.
--- NOTE | 2022-01-31 18:58 | ECG_ITS ---
Measurements Intervals [place] Rate: 99 P: 7 NV: 183 QRS: 25 QRSD: 81 T: 30 QT: 336 QTc: 433 Interpretive Statements SINUS RHYTHM NONSPECIFIC ST & T-WAVE ABNORMALITY COMPARED TO ECG 01/31/2022 05:13:30 NO SIGNIFICANT CHANGES Electronically Signed On 02-01-2022 13:35:06 CDT by Larissa Atwood M.D.
[2022-01-31 19:24] LABS: Basophils Percent Auto 0.3 % (0.2-1.2); Eosinophils Absolute Auto 0.2 K/mm3 (0-0.3); Eosinophils Percent Auto 2.1 % (0-4.4); Hematocrit 44.2 % (42.0-52.0); Hemoglobin 15.1 g/dL (14.0-18.0); Immature Granulocyte Absolute 0.04 K/mm3 (0.00-0.031); Immature Granulocyte Percent A 0.5 % (0-0.5); Lymphocytes Absolute Auto 0.85 K/mm3 (0.9-3.2); Lymphocytes Percent Auto 9.8 % (18.3-44.2); Mean Corpuscular HGB Conc 34.2 g/dl (32-36); Mean Corpuscular Hemoglobin 31.9 pg (26-34); Mean Corpuscular Volume 93.2 fl (80-100); Mean Platelet Volume 9.2 fl (7.4-10.4); Monocytes Absolute Auto 0.9 K/mm3 (0.1-0.6); Neutrophils Absolute Auto 6.7 K/mm3 (1.3-6.7); Neutrophils Percent Auto 77.3 % (45.5-73.1); Platelet Count Result 267 k/mm3 (150-375); Red Blood Count 4.74 M/mm3 (4.6-6.20); White Blood Count 8.7 K/mm3 (4.5-10.0)
[2022-01-31 19:28] LABS: Alanine Aminotransferase 48 U/L (6-50); Albumin Level 4.3 g/dL (3.5-5.1); Alkaline Phosphatase 127 U/L (38-126); Anion Gap 14 mmol/L (8-16); Aspartate Amino Transferase 53 U/L (17-59); Bilirubin,Total 1.6 mg/dL (0.2-1.3); Blood Urea Nitrogen 28 mg/dL (9-20); Calcium 9.5 mg/dL (8.4-10.2); Carbon Dioxide 23 mmol/L (22-30); Chloride 102 mmol/L (98-107); Estimated CRCL calculation 54 ml/min; Estimated Glomerular Filt Rate > 60; Glucose 116 mg/dL (65-110); Lipase 328 U/L (23-300); Potassium 3.8 mmol/L (3.4-5.0); Sodium 139 mmol/L (137-145)
[2022-01-31 19:37] LABS: INR 1.2
[2022-01-31 19:38] LABS: Partial Thromboplastin Time 38.1 SECONDS (22.3-36.8)
[2022-01-31 19:40] LABS: Troponin I < 0.012 ng/mL (0.000-0.034)
--- NOTE | 2022-01-31 19:48 | ED.GENADULT ---
HPI - General Adult General Chief complaint: Back Pain/Injury Stated complaint: BACK, RUQ PAIN Time Seen by Provider: 01/31/22 19:16 History of Present Illness HPI narrative: 66-year-old male presenting to the emergency department for evaluation of upper back pain. Patient was evaluated emergency department for back pain that started while he was on his boat. Patient states that he was prescribed Toradol and Flexeril and a lidocaine patch for pain control. Patient states that he has had persistent back pain and had an increase of back spasm this evening. Patient states the pain was so bad he was having some difficulty breathing. Patient reports upper back pain, denies any lower back pain he denies any abdominal tenderness to palpation. Patient states that he has been using a breast pump for about the last year in order to make his breast bigge . Patient was unsure if this could have been causing any of his pain. Related Data Home Medications Medication Instructions Recorded Confirmed aspirin 81 mg tablet,delayed 81 mg PO DAILY 01/30/22 01/30/22 release (Adult Aspirin Regimen) atorvastatin 20 mg tablet 20 mg PO DAILY 01/30/22 01/30/22 rivaroxaban 20 mg tablet (Xarelto) 20 mg PO DAILY 01/30/22 01/30/22 Allergies Allergy/AdvReac Type Severity Reaction Status Date / Time No Known Allergies Allergy Unknown Verified 01/31/22 05:07 Review of Systems Review of Systems: CONSTITUTIONAL: Denies fever, chills, or sweats. EYES: Denies visual changes, redness, or discharge. ENT: Denies rhinorrhea, congestion, sore throat, or otalgia. CARDIOVASCULAR: Denies chest pain, palpitations, or edema. RESPIRATORY: Denies cough or dyspnea. GASTROINTESTINAL: Denies abdominal pain, nausea, vomiting, or diarrhea. GENITOURINARY: Denies dysuria or hematuria. SKIN: Denies rash or itching. MUSCULOSKELETAL: Right scapular back pain NEUROLOGIC: Denies headache, numbness, or weakness. [facility] Past Medical History Medical History Gilbert disease Pacemaker Right inguinal hernia Tinnitus, bilateral Surgical History Surgical History H/O angioplasty Hx of cholecystectomy S/P AVR (aortic valve replacement) and aortoplasty Family History Family History Mother Diabetes mellitus Father Over 80 years old in his 90's Social History Social History Social History: The patient is single and lives alone. He has never been and not have any children. He is a lifelong nonsmoker and rarely drinks alcohol. He denies any illicit substance use. He does not exercise much but is independent in his activities of daily living. 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 Smoking status: Never smoker Alcohol intake: never Substance use: never Spiritual care concerns: No Exam Narrative: APPEARANCE: Well appearing, no pain, no distress, well-nourished. HEAD: normocephalic, atraumatic. EYES: PERRLA/EOMI, conjunctivae clear. NOSE: Normal no drainage NECK: Supple. No adenopathy, no masses. RESPIRATORY: Airway patent, respirations nonlabored. Clear to auscultation bilaterally, no rales, rhonchi, wheezing. CARDIOVASCULAR: Regular rate and rhythm without murmurs rubs or gallops. ABDOMINAL: Soft, nontender, nondistended, normal bowel sounds MUSCULOSKELETAL: Moves all extremities. No midline back tenderness to palpation. Some reproducible right scapular/muscular pain with palpation NEURO: Alert. Cranial nerves II through XII intact. Grossly intact SKIN: Warm, dry. Normal Color Course Course Emergency Course: Patient does feel improved with treatment. On repeat exam patient continues to have reproducible right muscular scapular pain. Patient has no reproducible abdominal pain
[2022-01-31] MEDS: HYDROmorphone HCL INJ (*CRX) 1 MG/ML SYR IV PUSH ×2 (20:06→21:50)
[2022-01-31] MEDS: SODIUM CHLORIDE 0.9% IV 1,000 ML 999 ML IV CONT ×2 (20:56→21:57)
[2022-01-31 22:01] LABS: Appearance Urine Clear (Clear); Bilirubin Urine Negative (Negative); Blood Urine Negative (Negative); Color Urine Yellow (Yellow); Glucose Urine UA Negative (Negative); Ketones Urine 2+ mg/dL (Negative); Leukocyte Esterase Ur Negative LEU/UL (Negative); Nitrate Urine Negative (Negative); Protein Urine 1+ mg/dL (Negative)
[2022-01-31 22:05] LABS: Mucus Urine Rare /lpf; Squamous Epithelial Cell Urine Rare /hpf (Few); WBC Urine 0-3 /hpf
[2022-01-31 22:13] LABS: Add Urine Microscopic? YES
[2022-01-31 23:54] LABS: Troponin I < 0.012 ng/mL (0.000-0.034)
== END 2022-01-31 23:55 | disposition home or self-care (01) ==
PROVIDERS: Emergency Medicine; Emergency Provider Emergency Medicine; PCP Family Medicine
DX: M54.6 Pain in thoracic spine (principal); E80.4 Gilbert syndrome; K40.20 Bilateral inguinal hernia, without obstruction or gangrene, not specified as recurrent; K44.9 Diaphragmatic hernia without obstruction or gangrene; Z95.0 Presence of cardiac pacemaker; Z95.2 Presence of prosthetic heart valve; Z98.62 Peripheral vascular angioplasty status; Z79.01 Long term (current) use of anticoagulants; Z79.82 Long term (current) use of aspirin
CPT/HCPCS: 36415; 71045; 71275; 74177; 80053; 81001; 83690; 84484; 85025; 85610; 85730; 93005; 96361; 96374; 96376; 99284; J1170; J7030; Q9967